=== PATIENT | male | born 1940 | race Caucasian/White ===

== ENCOUNTER 2018-11-02 14:21 | Emergency (ER) | payer MEDICARE, OTHER ==
[~2018-11-02] VITALS: Ht 188 cm; Wt 92.5 kg
[2018-11-02] MEDS ORDERED: LISINOPRIL10 MG PO (14:37)
[2018-11-02] MEDS ORDERED: VENTOLIN HFA INH8 GM INH (14:41)
[2018-11-02] MEDS ORDERED: ADVAIR HFA 230M12 GM INH (14:41)
[2018-11-02] MEDS ORDERED: HYDROCODON-ACE1 EA12 PO (14:42)
[2018-11-02] MEDS ORDERED: TERAZOSIN HCL10 MG PO (14:43)
[2018-11-02] MEDS ORDERED: IBUPROFEN 200200 M1 PO (14:43)
[2018-11-02] MEDS ORDERED: APAP650 PO (14:43)
[2018-11-02] MEDS ORDERED: KEFLEX500 M1 PO (15:01)
[2018-11-02] MEDS ORDERED: BACTRIM DS TAB1 EACH PO (15:01)
[2018-11-02 15:13] VITALS: BP 164/96
== END 2018-11-02 15:13 | disposition home or self-care (01) ==
LOC: M.ERS 14:21
DX: L02.212 Cutaneous abscess of back [any part, except buttock and flank] (principal); L03.312 Cellulitis of back [any part except buttock and flank]; I10 Essential (primary) hypertension; M19.90 Unspecified osteoarthritis, unspecified site

== ENCOUNTER → 2018-11-06 | Outpatient (CLI) | payer MEDICARE, OTHER ==
[~2018-11-06] MED LIST: ADVAIR HFA 230M12 GM INH; APAP650 PO; BACTRIM DS TAB1 EACH PO; HYDROCODON-ACE1 EA12 PO; IBUPROFEN 200200 M1 PO; KEFLEX500 M1 PO; LISINOPRIL10 MG PO; TERAZOSIN HCL10 MG PO; VENTOLIN HFA INH8 GM INH
== END ==
LOC: M.WC 07:34
DX: L02.212 Cutaneous abscess of back [any part, except buttock and flank] (principal); L02.219 Cutaneous abscess of trunk, unspecified; S41.001A Unspecified open wound of right shoulder, initial encounter; I10 Essential (primary) hypertension; M19.90 Unspecified osteoarthritis, unspecified site; J43.9 Emphysema, unspecified; Z87.891 Personal history of nicotine dependence; X58.XXXA Exposure to other specified factors, initial encounter; Y93.89 Activity, other specified; Y92.89 Other specified places as the place of occurrence of the external cause; Y99.8 Other external cause status

== ENCOUNTER → 2018-11-09 | Outpatient (CLI) | payer MEDICARE, OTHER | LOC: M.WC 04:43 | DX: L02.212 Cutaneous abscess of back [any part, except buttock and flank] (principal); S41.001D Unspecified open wound of right shoulder, subsequent encounter; L02.219 Cutaneous abscess of trunk, unspecified; I10 Essential (primary) hypertension; J43.9 Emphysema, unspecified; M19.90 Unspecified osteoarthritis, unspecified site; Z87.891 Personal history of nicotine dependence; X58.XXXD Exposure to other specified factors, subsequent encounter ==

== ENCOUNTER → 2018-11-13 | Outpatient (CLI) | payer MEDICARE, OTHER | LOC: M.WC 05:04 | DX: L02.212 Cutaneous abscess of back [any part, except buttock and flank] (principal); L02.219 Cutaneous abscess of trunk, unspecified; I10 Essential (primary) hypertension; J43.9 Emphysema, unspecified; M19.90 Unspecified osteoarthritis, unspecified site; Z87.891 Personal history of nicotine dependence ==

== ENCOUNTER → 2018-11-16 | Outpatient (CLI) | payer MEDICARE, OTHER | LOC: M.WC 04:55 | DX: L02.212 Cutaneous abscess of back [any part, except buttock and flank] (principal); L02.219 Cutaneous abscess of trunk, unspecified; I10 Essential (primary) hypertension; J43.9 Emphysema, unspecified; M19.90 Unspecified osteoarthritis, unspecified site; Z87.891 Personal history of nicotine dependence ==

== ENCOUNTER → 2018-11-20 | Outpatient (CLI) | payer MEDICARE, OTHER | LOC: M.WC 00:31 | DX: L02.212 Cutaneous abscess of back [any part, except buttock and flank] (principal); L02.219 Cutaneous abscess of trunk, unspecified; I10 Essential (primary) hypertension; M19.90 Unspecified osteoarthritis, unspecified site; J43.9 Emphysema, unspecified; Z87.891 Personal history of nicotine dependence ==

== ENCOUNTER → 2018-11-23 | Outpatient (CLI) | payer MEDICARE, OTHER | LOC: M.WC 00:27 | DX: L02.212 Cutaneous abscess of back [any part, except buttock and flank] (principal); L02.219 Cutaneous abscess of trunk, unspecified; I10 Essential (primary) hypertension; J43.9 Emphysema, unspecified; M19.90 Unspecified osteoarthritis, unspecified site; Z87.891 Personal history of nicotine dependence ==

== ENCOUNTER → 2018-11-27 | Outpatient (CLI) | payer MEDICARE, OTHER | LOC: M.WC 05:34 | DX: L02.212 Cutaneous abscess of back [any part, except buttock and flank] (principal); L02.219 Cutaneous abscess of trunk, unspecified; I10 Essential (primary) hypertension; J43.9 Emphysema, unspecified; M19.90 Unspecified osteoarthritis, unspecified site; Z87.891 Personal history of nicotine dependence ==

== ENCOUNTER → 2018-11-30 | Outpatient (CLI) | payer MEDICARE, OTHER | LOC: M.WC 04:33 | DX: L02.219 Cutaneous abscess of trunk, unspecified (principal); I10 Essential (primary) hypertension; M19.90 Unspecified osteoarthritis, unspecified site; J43.9 Emphysema, unspecified; Z87.891 Personal history of nicotine dependence ==

== ENCOUNTER → 2018-12-04 | Outpatient (CLI) | payer MEDICARE, OTHER | LOC: M.WC 05:22 | DX: L02.212 Cutaneous abscess of back [any part, except buttock and flank] (principal); L72.3 Sebaceous cyst; I10 Essential (primary) hypertension; J43.9 Emphysema, unspecified; M19.90 Unspecified osteoarthritis, unspecified site; Z87.891 Personal history of nicotine dependence ==

== ENCOUNTER → 2018-12-11 | Outpatient (CLI) | payer MEDICARE, OTHER | LOC: M.WC 05:24 | DX: L02.212 Cutaneous abscess of back [any part, except buttock and flank] (principal); L72.3 Sebaceous cyst; J43.9 Emphysema, unspecified; M19.90 Unspecified osteoarthritis, unspecified site; Z87.891 Personal history of nicotine dependence ==

== ENCOUNTER → 2018-12-14 | Outpatient (CLI) | payer MEDICARE, OTHER | LOC: M.WC 04:05 | DX: L02.212 Cutaneous abscess of back [any part, except buttock and flank] (principal); L72.3 Sebaceous cyst; I10 Essential (primary) hypertension; J43.9 Emphysema, unspecified; M19.90 Unspecified osteoarthritis, unspecified site; Z87.891 Personal history of nicotine dependence ==

== ENCOUNTER → 2018-12-18 | Outpatient (CLI) | payer MEDICARE, OTHER | LOC: M.WC 05:17 | DX: L02.212 Cutaneous abscess of back [any part, except buttock and flank] (principal); L72.3 Sebaceous cyst; I10 Essential (primary) hypertension; J43.9 Emphysema, unspecified; M19.90 Unspecified osteoarthritis, unspecified site; Z87.891 Personal history of nicotine dependence ==

== ENCOUNTER → 2018-12-21 | Outpatient (CLI) | payer MEDICARE, OTHER | LOC: M.WC 05:05 | DX: L02.212 Cutaneous abscess of back [any part, except buttock and flank] (principal); L72.3 Sebaceous cyst; I10 Essential (primary) hypertension; M19.90 Unspecified osteoarthritis, unspecified site; J43.9 Emphysema, unspecified; Z87.891 Personal history of nicotine dependence ==

== ENCOUNTER → 2018-12-25 | Outpatient (CLI) | payer MEDICARE, OTHER | LOC: M.WC 05:25 | DX: L02.212 Cutaneous abscess of back [any part, except buttock and flank] (principal); L72.3 Sebaceous cyst; I10 Essential (primary) hypertension; J43.9 Emphysema, unspecified; M19.90 Unspecified osteoarthritis, unspecified site; Z87.891 Personal history of nicotine dependence ==